=== PATIENT | female | born 1960 | race Caucasian/White ===

== ENCOUNTER → 2018-07-19 | Outpatient (CLI) | payer OTHER ==
[2018-07-19 12:37] LABS: MEAN CORPUSCULAR HGB CONC 32.5 g/dL (32.4-35.8); MEAN CORPUSCULAR VOLUME 80.2 fL (80-100); MEAN PLATELET VOLUME 9.4 fL (7.4-10.4); PLATELET COUNT 281 x10^3/uL (130-400); RED BLOOD COUNT 4.96 x10^6/uL (3.82-5.3); RED CELL DISTRIBUTION WIDTH 14.1 % (9.6-15.2)
[2018-07-19 12:44] LABS: INTERNATIONAL NORMALIZED RATIO 1.02 (0.93-1.1); PROTHROMBIN TIME 10.7 Seconds (9.6-11.5)
[2018-07-19 12:49] LABS: ALANINE AMINOTRANSFERASE 24 U/L (12-78); ALBUMIN 3.5 g/dL (3.4-5.0); ANION GAP 4 mmol/L (5-15); CALCIUM 9.2 mg/dL (8.5-10.1); CHLORIDE 110 mmol/L (98-107); CREATININE 0.94 mg/dL (0.55-1.02)
[2018-07-19 12:51] LABS: ALKALINE PHOSPHATASE 69 U/L (45-117); BILIRUBIN,TOTAL 0.3 mg/dL (0.2-1.0); TOTAL PROTEIN 6.8 g/dL (6.4-8.2)
[2018-07-19 13:13] LABS: BASOPHILS # (AUTO) 0.03 x10^3/uL (0-0.1); BASOPHILS % (AUTO) 0 % (0-1); EOSINOPHILS # (AUTO) 0.17 x10^3/uL (0-0.4); EOSINOPHILS % (AUTO) 2 % (1-7); LYMPHOCYTES % (AUTO) 32 % (22-44); MD SCAN; MONOCYTES # (AUTO) 0.12 x10^3/uL (0.2-0.8); MONOCYTES % (AUTO) 2 % (2-9); NEUTROPHILS % (AUTO) 64 % (42-75)
[2018-07-19 13:35] LABS: HEMOGLOBIN A1C 5.3 % (4.2-6.3)
== END | disposition home or self-care (01) ==
LOC: STAR 11:05
PROVIDERS: ATTEND Orthopaedic Surgery
DX: Z01.818 Encounter for other preprocedural examination (principal); M16.12 Unilateral primary osteoarthritis, left hip; K21.9 Gastro-esophageal reflux disease without esophagitis; Z79.899 Other long term (current) drug therapy
CPT/HCPCS: 36415; 80053; 83036; 85025; 85610; 85730; 87081; 93005

== ENCOUNTER 2018-07-28 07:19 | Inpatient (IN) | payer OTHER ==
[~2018-07-28] VITALS: Ht 152.4 cm; Wt 84.9 kg
[~2018-07-28 07:19] MED LIST: ACET325T14 PO; CALC600T4 PO; EPINEPHRINE 1 MG/ML, 1ML ONE; ERGO500017 PO; ESTR30CR TP; FISH1CAP PO; FLUO20DR3 TP; IBUP200C8 PO; KETOROLAC 60 MG/2 ML ONE; LACT1CAP35 PO; LEVO125T5 PO; MULT1TAB60 PO; ROPIvacaine/PF 0.5%, 20 ML ONE; ROPIvacaine/PF 0.5%, 30 ML ONE; SODIUM CHLORIDE 0.9% 50 ML ONE; TRANEXAMIC ACID 100 MG/ML, 10ML ONE; TRIA340. TP; VANCOMYCIN 1,000 MG ONE; VITA1CAP7 PO
[2018-07-28] MEDS ORDERED: LACTATED RINGERS 1,000 ML IV SCH (07:34)
[2018-07-28 07:48] VITALS: BP 126/87
[2018-07-28] MEDS ORDERED: MIDAZOLAM 1 MG/ML, 2ML ONE (07:52)
[2018-07-28] MEDS ORDERED: FENTANYL PF 250 MCG/5ML ONE (07:52)
[2018-07-28] MEDS ORDERED: GABAPENTIN 300 MG CAPSULE PO ONE (08:00)
[2018-07-28] MEDS ORDERED: ACETAMINOPHEN 500 MG TABLET PO ONE (08:00)
[2018-07-28] MEDS ORDERED: OXYcodone 5 MG/5 ML ORAL.SOL UDC PO PRN (09:00)
[2018-07-28] MEDS ORDERED: FENTANYL PF 100 MCG/2ML IV PRN (09:00)
[2018-07-28] MEDS ORDERED: LORazepam 2 MG/ML, 1ML IVPush PRN (09:00)
[2018-07-28] MEDS ORDERED: hydrALAzine 20 MG/ML, 1ML IV PRN (09:00)
[2018-07-28] MEDS ORDERED: LABETALOL 5MG/ML, 20ML IV PRN (09:00)
[2018-07-28] MEDS ORDERED: MEPERIDINE/PF 25MG/0.5ML IVPush PRN (09:00)
[2018-07-28] MEDS ORDERED: METOCLOPRAMIDE 5 MG/ML, 2ML IV PRN (09:00)
[2018-07-28] MEDS ORDERED: ONDANSETRON 4 MG TABLET PO PRN (11:00)
[2018-07-28] MEDS ORDERED: ACETAMINOPHEN 650 MG/20.3 ML UDC PO PRN (11:00)
[2018-07-28] MEDS ORDERED: SENNA/DOCUSATE TABLET PO PRN (11:00)
[2018-07-28] MEDS ORDERED: BISACODYL 10 MG SUPP PR PRN (11:00)
[2018-07-28] MEDS ORDERED: MAGNESIUM HYDROXIDE 8%, 30ML UDC PO PRN (11:00)
[2018-07-28] MEDS ORDERED: ZOLPIDEM 5MG TABLET PO PRN (11:00)
[2018-07-28] MEDS ORDERED: DIPHENHYDRAMINE 50 MG CAPSULE PO PRN (11:00)
[2018-07-28] MEDS ORDERED: SCOPOLAMINE PATCH, 1.5MG PATCH.TD72 TD ONE (11:00)
[2018-07-28] MEDS ORDERED: HYDROcodone/APAP 5/325 TABLET PO PRN (11:00)
[2018-07-28] MEDS ORDERED: ONDANSETRON 2MG/ML, 2ML IV PRN (11:00)
[2018-07-28] MEDS ORDERED: OXYcodone 5 MG/5 ML ORAL.SOL UDC ONE (11:12)
[2018-07-28] MEDS ORDERED: FENTANYL PF 100 MCG/2ML ONE (11:12)
[2018-07-28] MEDS ORDERED: HYDROmorphone 2 MG/ML, 1ML ONE (11:12)
[2018-07-28] MEDS: HYDROmorphone 2 MG/ML, 1ML IVPush PRN ×2 (11:19→11:39)
[2018-07-28] MEDS: NS + 20MEQ KCL 1,000 ML IV SCH (14:14)
[2018-07-28 14:32] VITALS: BP 117/63
[2018-07-28] MEDS ORDERED: PROPOFOL 10 MG/ML, 20ML ONE (14:52)
[2018-07-28] MEDS ORDERED: GLYCOPYRROLATE 0.2MG/1ML, 5ML ONE (14:52)
[2018-07-28] MEDS ORDERED: DEXAMETHASONE 4 MG/ML, 1ML ONE (14:52)
[2018-07-28] MEDS ORDERED: ROCURONIUM 10MG/ML,5ML ONE (14:52)
[2018-07-28] MEDS ORDERED: NEOSTIGMINE 1 MG/ML, 10ML ONE (14:52)
[2018-07-28] MEDS ORDERED: ONDANSETRON 2MG/ML, 2ML ONE (14:52)
[2018-07-28] MEDS: ASPIRIN 81 MG TABLET EC PO SCH (17:30)
[2018-07-28] MEDS: CEFAZOLIN PMX 2GM/50ML 50 ML IVPB SCH (17:31)
[2018-07-28] MEDS: CEFAZOLIN MC SCH (17:50)
[2018-07-28] MEDS: OXYcodone IR 5MG TABLET PO PRN ×2 (18:18→22:52)
[2018-07-28 19:56] VITALS: BP 101/64
[2018-07-28] MEDS: DOCUSATE 100 MG CAPSULE PO SCH (20:33)
[2018-07-29] MEDS: NS + 20MEQ KCL 1,000 ML IV SCH ×2 (01:30→07:20)
[2018-07-29] MEDS: CEFAZOLIN PMX 2GM/50ML 50 ML IVPB SCH (01:31)
[2018-07-29 01:35] VITALS: BP 100/62
[2018-07-29] MEDS: CEFAZOLIN MC SCH ×2 (01:50→07:20)
[2018-07-29] MEDS: OXYcodone IR 5MG TABLET PO PRN ×3 (03:00→11:42)
[2018-07-29] MEDS ORDERED: DEXAMETHASONE 4 MG/ML, 1ML IVPush SCH (06:00)
[2018-07-29] MEDS: ASPIRIN 81 MG TABLET EC PO SCH (06:07)
[2018-07-29] MEDS: DOCUSATE 100 MG CAPSULE PO SCH (07:28)
[2018-07-29] MEDS ORDERED: LEVOTHYROXINE 125 MCG TABLET PO SCH (07:30)
[2018-07-29 07:55] VITALS: BP 102/56
[2018-07-29] MEDS ORDERED: OXYC5TAB3 PO (08:51)
[2018-07-29] MEDS ORDERED: TRAM50TA2 PO (08:52)
[2018-07-29] MEDS ORDERED: MELO7.5T31 PO (08:53)
[2018-07-29 11:27] VITALS: BP 107/54
== END 2018-07-29 13:50 | disposition home or self-care (01) | DRG 470 ==
LOC: ORIP 07:19 → 4NOR 12:26 → DCLOUNGE 07-29 13:28
PROVIDERS: ADMIT Orthopaedic Surgery; ATTEND Orthopaedic Surgery
PROC: 0SRB06A Replacement of Left Hip Joint with Oxidized Zirconium on Polyethylene Synthetic Substitute, Uncemented, Open Approach (ICD-10-PCS; principal; 2018-07-28 09:45)
DX: M16.12 Unilateral primary osteoarthritis, left hip (principal); E03.9 Hypothyroidism, unspecified; K21.9 Gastro-esophageal reflux disease without esophagitis; Z88.2 Allergy status to sulfonamides; Z88.8 Allergy status to other drugs, medicaments and biological substances; Z82.61 Family history of arthritis; Z82.3 Family history of stroke; Z82.49 Family history of ischemic heart disease and other diseases of the circulatory system; Z87.891 Personal history of nicotine dependence
CPT/HCPCS: 36415; 72170; 76000; 85014; 85018; C1713; G0378; J0171; J0690; J1100; J1170; J1885; J2250; J2405; J2704; J2710; J2795; J3010; J3370; J3480; C1776; J7120